=== PATIENT | male | born 1945 | race Caucasian/White ===

== ENCOUNTER 2018-12-06 16:11 | Inpatient (IN) ==
[2018-12-06] MEDS ORDERED: NS 1000 ML 1,000 ML ONE (16:15)
[2018-12-06] MEDS ORDERED: NS 1000 ML 1,000 ML IV ONE ×2 (16:30→19:38)
[2018-12-06 16:32] LABS: BASOPHILS # (AUTO) 0.1 X10^3/uL (0.0-0.1); BASOPHILS % (AUTO) 0.7 % (0.2-1.0); EOSINOPHILS # (AUTO) 0.1 x10^3/uL (0.0-0.2); EOSINOPHILS % (AUTO) 0.7 % (0.9-2.9); HEMATOCRIT 45.2 % (42.0-54.0); LYMPHOCYTES # (AUTO) 1.5 X10^3/uL (1.3-2.9); LYMPHOCYTES % (AUTO) 13.4 % (21.0-51.0); MEAN CORPUSCULAR HEMOGLOBIN 29.4 pg (27.0-34.0); MEAN CORPUSCULAR HGB CONC 33.1 g/dL (33.0-35.0); MEAN PLATELET VOLUME 8.4 fL (7.4-11.0); MONOCYTES # (AUTO) 1.3 x10^3/uL (0.3-0.8); MONOCYTES % (AUTO) 11.1 % (0.0-13.0); NEUTROPHILS # (AUTO) 8.6 x10^3/uL (2.2-4.8); NEUTROPHILS % (AUTO) 74.1 % (42.0-75.0); PLATELET COUNT 164 X10^3/uL (150.0-450.0); RED BLOOD COUNT 5.09 X10^6/uL (4.7-6.0); RED CELL DISTRIBUTION WIDTH 13.5 % (11.6-16.5); WHITE BLOOD COUNT 11.5 X10^3/uL (3.6-10.0)
--- NOTE | 2018-12-06 16:33 | DR.SOBA ---
HPI Time Seen Time Seen by Provider: 12/06/18 16:15 Complaints Chief Complaint Doctors Comments: A 73 y/o male sent over to the ED by his CHANNEL [employer]ER. He was there today for labs and FLU shot. He was noted hypotensive. The pt. admits to SOB but denies c/p or palpitations. He has no fever or chills. He states he was fine yesterday but not feeling good upon awakening this a.m. Reviewed Nurses Notes Reviewed: Yes Source History Provided: Patient and Family Member Context Onset:: At Rest PE Risk Factors:: None History of:: None Currently on:: Neither Prehospital Care:: None Modifying Factors Worsens:: Exertion Improves:: Nothing Associated Signs and Symptoms Associated Signs and Symptoms: None If Cough Cough: None PMH PMH Past Medical History: CHF, Coronary Artery Disease and Hypertension Past Surgical History: Yes Surgical History: CABG/Valve Surgery and Ortho Surgery Social History Do you use any recreational Drugs:: No infectious screening Isolation: Standard ROS Review of Systems Constitutional: Weakness Eyes: No Symptoms Reported ENTM: No Symptoms Reported Respiratoy: Short of Breath Cardiovascular: No Symptoms Reported Gastrointestinal/Abdominal: No Symptoms Reported Genitourinary: No Symptoms Reported Neurological: No Symptoms Reported Musculoskeletal: No Symptoms Reported Integumentary: No Symptoms Reported Hematologic/Lymphatic: No Symptoms Reported Endocrine: No Symptoms Reported Psychiatric: No Symptoms Reported PE Vital Signs Vitals: Temperature 99.8 F Pulse Rate [Apical] 87 Pulse Rate 95 Respiratory Rate 17 Blood Pressure [Left Arm] 79/52 Blood Pressure 74/48 O2 Sat by Pulse Oximetry 95 General Limitations: Physical Limitation (Lt. AKA) General Appearance: Alert and In No Apparent Distress Head Head Exam: Normal Inspection, Atraumatic and Normocephalic Eyes Eye exam: Normal Appearance and EOMI ENT ENT Exam: Normal Exam, Normal Oropharynx and Mucous Membranes Moist Neck Neck Exam: Normal Inspection, Full ROM and Trachea Midline Chest Chest Inspection: Normal Inspection and Symmetric Chest Wall Rise Respiratory Respiratory Exam: Normal Lung Sounds Bilat Cardiovascular Cardiovascular Exam: Regular Rate, Normal Rhythm, Normal Heart Sounds, +S1 and +S2 Abdominal Exam Abdominal Exam: Normal Inspection, Normal Bowel Sounds and Soft Extremities Extremities Exam: Other (Lt. AKA) Back Back Exam: Normal Inspection and Full ROM Neurologic Neurological Exam: Alert and Oriented X3 Psychiatric Psychiatric Exam: Normal Affect and Normal Mood Skin Skin Exam: Dry and Normal Color COURSE Reevaluation 1st: Unchanged Education/Counseling Education/Counseling: Patient, Family and Education Educated On: Treatment, Diagnosis, Prognosis and Needs for Follow Up ROR Labs Reviewed Laboratory Results Reviewed?: Yes Result Diagrams: 12/06/18 16:22 12/06/18 16:22 Laboratory: WBC 11.5 X10^3/uL (3.6-10.0) H 12/06/18 16:22 RBC 5.09 X10^6/uL (4.7-6.0) 12/06/18 16:22 Hgb 15.0 g/dL (13.5-18.0) 12/06/18 16:22 Hct 45.2 % (42.0-54.0) 12/06/18 16:22 MCV 89.0 fL (80.0-100.0) 12/06/18 16:22 MCH 29.4 pg (27.0-34.0) 12/06/18 16:22 MCHC 33.1 g/dL (33.0-35.0) 12/06/18 16:22 RDW 13.5 % (11.6-16.5) 12/06/18 16:22 Plt Count 164 X10^3/uL (150.0-450.0) 12/06/18 16:22 MPV 8.4 fL (7.4-11.0) 12/06/18 16:22 Neut % (Auto) 74.1 % (42.0-75.0) 12/06/18 16:22 Lymph % (Auto) 13.4 % (21.0-51.0) L 12/06/18 16:22 [place] % (Auto) 11.1 % (0.0-13.0) 12/06/18 16:22 Eos % (Auto) 0.7 % (0.9-2.9) L 12/06/18 16:22 Baso % (Auto) 0.7 % (0.2-1.0) 12/06/18 16:22 Neut # (Auto) 8.6 x10^3/uL (2.2-4.8) H 12/06/18 16:22 Lymph # (Auto) 1.5 X10^3/uL (1.3-2.9) 12/06/18 16:22 [place] # (Auto) 1.3 x10^3/uL (0.3-0.8) H 12/06/18 16:22 Eos # (Auto) 0.1 x10^3/uL (0.0-0.2) 12/06/18 16:22 Baso # (Auto) 0.1 X10^3/uL (0.0-0.1) 12/06/18 16:22 Absolute Nucleated RBC 0.0 /100WBC 12/06/18 16:22 PT 13.1 SECONDS (11.8-14.3) 12/06/18 16:22 INR Target Range - 12/06/18 16: INR 1.03 (0.8-1.3) 12/06/18 16:22 APTT 29.7 SECONDS (22.9-36.5) 12/06/18 16:22 PTT Comment - 12/06/18 16:22 Sample Site Rb 12/06/18 17:04 ABG pH 7.300 (7.35-7.45) L 12/06/18 17:04 ABG pCO2 50.0 mmHg (35.0-45.0) H 12/06/18 17:04 ABG pO2 81.0 mmHg (80.0-100.0) 12/06/18 17:04 ABG HCO3 24.6 mmol/L (22-26) 12/06/18 17:04 ABG O2 Saturation 95.0 % (90-100) 12/06/18 17:04 ABG Base Excess -2.3 mmol/L (-2.0-2.0) L 12/06/18 17:04 [place]abena Test Pos 12/06/18 17:04 A-a Gradient 56.0 mmHg 12/06/18 17:04 FiO2 28.0 12/06/18 17:04 Blood Gas Comments Kacie well cb 12/06/18 17:04 Sodium 134 mmol/L (136-145) L 12/06/18 16:22 Corrected Sodium 134 mmol/L (136-145) L 12/06/18 16:22 Potassium 5.9 mmol/L (3.5-5.1) H 12/06/18 16:22 Chloride 102 mmol/L (98-107) 12/06/18 16:22 Carbon Dioxide 23.7 mmol/L (21-32) 12/06/18 16:22 BUN 34 mg/dL (7-18) H 12/06/18 16:22 Creatinine 2.50 mg/dL (0.70-1.30) H 12/06/18 16:22 Est GFR (MDRD) Af Amer 33 (>60) L 12/06/18 16:22 Est GFR (MDRD) Non-Af 27 (>60) L 12/06/18 16:22 Glucose 118 mg/dL (65-99) H 12/06/18 16:22 Lactic Acid 2.1 mmol/L (0.4-2.0) H 12/06/18 16:22 Calcium 9.0 mg/dL (8.5-10.1) 12/06/18 16:22 Corrected Calcium TNP 12/06/18 16:22 Total Bilirubin 0.50 mg/dL (0.2-1.0) 12/06/18 16:22 AST 19 Units/L (15-37) 12/06/18 16:22 ALT 14 Units/L (12-78) 12/06/18 16:22 Alkaline Phosphatase 63 Units/L (46-116) 12/06/18 16:22 Creatine Kinase 131 Units/L (39-308) 12/06/18 16:22 CK-MB (CK-2) 2.1 ng/mL (0-4.0) 12/06/18 16:22 CK/CKMB % Calc 1.6 % (<4) 12/06/18 16:22 Troponin I < 0.02 ng/mL (0-1.5) 12/06/18 16:22 B-Natriuretic Peptide 102 pg/mL (0-79) H 12/06/18 16:22 Total Protein 6.9 g/dL (6.4-8.2) 12/06/18 16:22 Albumin 3.6 g/dL (3.4-5.0) 12/06/18 16:22 Globulin 3.3 g/dL (2.5-4.5) 12/06/18 16:22 Albumin/Globulin Ratio 1.1 Ratio (1.1-2.1) 12/06/18 16:22 Other Results Comments: [employer] report on CXR: Pleural parenchymal scarring within the Rt. lung apex with a questionable new nodular opacities in the RUL. Stable Rt. > Lt. interstitial fibrosis. EKG Rate: 101 [place]: Normal Rhythm: NSR Block: None Hypertrophy: None ST: Normal Opioid Opioid Risk Tool Total: 0 Total Score Risk Category: Low Risk Copyright: [facility] predicting aberrant behaviors Diagnosis Discharge Problem: Acute hypotension, Acute hyperkalemia, Lung nodule, multiple, Pulmonary fibrosis Dyspnea Qualifiers: Dyspnea type: shortness of breath Qualified Code(s): R06.02 - Shortness of breath Instructions Forms: Excuse From Work Patient Portal
--- NOTE | 2018-12-06 16:51 | RAD ---
AP Chest Indication: Shortness of breath Comparison: 07/29/2018 Findings: There is more conspicuous pleural parenchymal scarring within the right lung apex with a questionable new nodular opacity within the right upper lobe. Postsurgical change within the right lung with severe right greater than left lower lobe interstitial lung disease and fibrosis. Lung volumes are noted bilaterally. Blunting of the right costophrenic sulcus without definite blunting of the left costophrenic sulcus. No pneumothorax. No acute osseous abnormality. IMPRESSION: Since previous examination there is increased pleural parenchymal scarring within the right lung apex with a questionable new nodular opacities in the right upper lobe, correlation with follow-up nonemergent contrast-enhanced chest CT is recommended for further characterization. Stable right greater than left interstitial lung disease/fibrosis. Stable costophrenic sulcus blunting within the right lung represents either scarring or small right-sided effusion. No definite left-sided effusion persist. Reported By:
[2018-12-06 16:54] LABS: LACTIC ACID 2.1 mmol/L (0.4-2.0)
[2018-12-06 17:02] LABS: ALANINE AMINOTRANSFERASE 14 Units/L (12-78); ALBUMIN 3.6 g/dL (3.4-5.0); ALKALINE PHOSPHATASE 63 Units/L (46-116); ASPARTATE AMINO TRANSFERASE 19 Units/L (15-37); BLOOD UREA NITROGEN 34 mg/dL (7-18); CARBON DIOXIDE 23.7 mmol/L (21-32); CHLORIDE 102 mmol/L (98-107); CKMB % 1.6 % (<4); COR NA(FOR HYPERGLY) 134 mmol/L (136-145); CREATINE KINASE 131 Units/L (39-308); CREATINE KINASE MB 2.1 ng/mL (0-4.0); SODIUM 134 mmol/L (136-145); TOTAL PROTEIN 6.9 g/dL (6.4-8.2); eGFR NON BLACK RACES 27 (>60)
[2018-12-06 17:10] LABS: ABG ALLEN TEST POS; ABG BASE EXCESS -2.3 mmol/L (-2.0-2.0); ABG HCO3 24.6 mmol/L (22-26)
[2018-12-06 17:23] LABS: TROPONIN I < 0.02 ng/mL (0-1.5)
[2018-12-06] MEDS ORDERED: DOPAMINE IV PREMIX 400 MG/250 ML 400 MG/250 ML BAG IV PRN ×2 (17:28→17:42)
[2018-12-06 18:48] VITALS: BMI 20.9
[2018-12-06] MEDS ORDERED: AFLURIA II4 or FLUARIX II4 IM ONE (18:48)
[2018-12-06] MEDS ORDERED: PHARMACY CONSULT - VANCOMYCIN XX SCH (19:00)
[2018-12-06] MEDS ORDERED: LEVOPHED INJ 8 MG in D5W 250 ML IV 242 ML IV PRN (19:22)
[2018-12-06] MEDS ORDERED: D5W 250 ML IV 250 ML IV ONE ×2 (19:24→22:13)
[2018-12-06] MEDS ORDERED: LEVOPHED INJ ONE (19:24)
--- NOTE | 2018-12-06 19:31 | DR.H&P ---
H&P History & Physical for Day of: H&P Date: 12/06/18 Chief Complaint Chief Complaint: Shortness of breath, low blood pressure Allergies Allergies Allergy/AdvReac Type Severity Reaction Status Date / Time Penicillins Allergy Verified 07/29/18 21:40 History of Present Illness History of Present Illness: Mr. Austin is a 73y/o male with a PMH of CAD, CABG, PVD s/p amputation, Lung cancer s/p RUL resection, pulmonary fibrosis and COPD presented with SOB, chills and hypotension. Patient seen in the ER with present at bedside. Patient reports waking up feeling short of breath associated with chills. He has oxygen at home but has not required it in months. He started using 3 L this morning due to increased SOB and wheezing. He denies cough, fever, no chest pain. He denies any sick contact. He denies N/V/D or abdominal pain. Denies dizziness or syncopal episodes. He has had decreased appetite today. He went to his PCP's office in [place] and was found to be hypotensive, SBP in 70s and told to go to the ED. Patient has had ER visits for dehydration in the past. He reports doing well till yesterday when we went to bed. He denies any changes in eating habits in the last few days. He has left leg amputation due to severe PVD. He had a recent echo and carotid U/S done and has appointment with cardiology next week. He took all his medications today except Lasix. No recent med changes. ED work-up - BP: 79/52 HR: 90s-low 100s - Labs: K:5.9 Na: 134 BUN: 34 Cr: 2.5 WBC: 11.5 - CXR: R apex nodular opacity, pulmonary fibrosis - Received NS IVF, BP initially improved to SBP 90s, then dropped to 80s, started on Dopamine Admit to ICU for closer monitoring and pressure support Past Medical History Past Medical History: CHF, Coronary Artery Disease and Hypertension Past Surgical History Surgical History: Angioplasty/Stents, CABG/Valve Surgery and Ortho Surgery Family History Family Medical History: Diabetes Mellitus, [place], Coronary Artery Disease, Heart Failure and Hypertension Social History Does patient currently use any type of tobacco product: No Have you used tobacco products in the last 12 months: No Type of Tobacco Use: None Does any household member use tobacco: No Alcohol Use: None Drug Use: None Medications Home Medications: Penicillins Allergy (Verified 07/29/18 21:40) CONTINUE taking the following medications albuterol sulfate [ProAir HFA] 1 inh INHALATION PRN PRN 12/06/18 [History] cholecalciferol (vitamin D3) [Vitamin D3] 1,000 unit PO DAILY 12/06/18 [History] cyanocobalamin (vitamin B-12) [Vitamin B-12] 1,000 mcg PO DAILY 12/06/18 [History] itvayfuhkhd-haandycxt-rcmxrwmi [Trelegy Ellipta] 1 inh INHALATION DAILY 12/06/18 [History] ipratropium-albuterol 3 ml INHALATION QID PRN 12/06/18 [History] iron 27 mg PO DAILY 12/06/18 [History] levothyroxine [Synthroid] 25 mcg PO DAILY 12/06/18 [History] ticagrelor [Brilinta] 90 mg PO BID 12/06/18 [History] Labs Result Diagrams: 12/06/18 16:22 12/06/18 16:22 Labs: Laboratory WBC 11.5 X10^3/uL (3.6-10.0) H 12/06/18 16:22 RBC 5.09 X10^6/uL (4.7-6.0) 12/06/18 16:22 Hgb 15.0 g/dL (13.5-18.0) 12/06/18 16:22 Hct 45.2 % (42.0-54.0) 12/06/18 16:22 MCV 89.0 fL (80.0-100.0) 12/06/18 16:22 MCH 29.4 pg (27.0-34.0) 12/06/18 16:22 MCHC 33.1 g/dL (33.0-35.0) 12/06/18 16:22 RDW 13.5 % (11.6-16.5) 12/06/18 16:22 Plt Count 164 X10^3/uL (150.0-450.0) 12/06/18 16:22 MPV 8.4 fL (7.4-11.0) 12/06/18 16:22 Neut % (Auto) 74.1 % (42.0-75.0) 12/06/18 16:22 Lymph % (Auto) 13.4 % (21.0-51.0) L 12/06/18 16:22 [place] % (Auto) 11.1 % (0.0-13.0) 12/06/18 16:22 Eos % (Auto) 0.7 % (0.9-2.9) L 12/06/18 16:22 Baso % (Auto) 0.7 % (0.2-1.0) 12/06/18 16:22 Neut # (Auto) 8.6 x10^3/uL (2.2-4.8) H 12/06/18 16:22 Lymph # (Auto) 1.5 X10^3/uL (1.3-2.9) 12/06/18 16:22 [place] # (Auto) 1.3 x10^3/uL (0.3-0.8) H 12/06/18 16:22 Eos # (Auto) 0.1 x10^3/uL (0.0-0.2) 12/06/18 16:22 Baso # (Auto) 0.1 X10^3/uL (0.0-0.1) 12/06/18 16:22 Absolute Nucleated RBC 0.0 /100WBC 12/06/18 16:22 PT 13.1 SECONDS (11.8-14.3) 12/06/18 16:22 INR Target Range - 12/06/18 16:22 INR 1.03 (0.8-1.3) 12/06/18 16:22 APTT 29.7 SECONDS (22.9-36.5) 12/06/18 16:22 PTT Comment - 12/06/18 16:22 Sample Site Rb 12/06/18 17:04 ABG pH 7.300 (7.35-7.45) L 12/06/18 17:04 ABG pCO2 50.0 mmHg (35.0-45.0) H 12/06/18 17:04 ABG pO2 81.0 mmHg (80.0-100.0) 12/06/18 17:04 ABG HCO3 24.6 mmol/L (22-26) 12/06/18 17:04 ABG O2 Saturation 95.0 % (90-100) 12/06/18 17:04 ABG Base Excess -2.3 mmol/L (-2.0-2.0) L 12/06/18 17:04 [place] Test Pos 12/06/18 17:04 A-a Gradient 56.0 mmHg 12/06/18 17:04 FiO2 28.0 12/06/18 17:04 Blood Gas Comments Kacie well cb 12/06/18 17:04 Sodium 134 mmol/L (136-145) L 12/06/18 16:22 Corrected Sodium 134 mmol/L (136-145) L 12/06/18 16:22 Potassium 5.9 mmol/L (3.5-5.1) H 12/06/18 16:22 Chloride 102 mmol/L (98-107) 12/06/18 16:22 Carbon Dioxide 23.7 mmol/L (21-32) 12/06/18 16:22 BUN 34 mg/dL (7-18) H 12/06/18 16:22 Creatinine 2.50 mg/dL (0.70-1.30) H 12/06/18 16:22 Est GFR (MDRD) Af Amer 33 (>60) L 12/06/18 16:22 Est GFR (MDRD) Non-Af 27 (>60) L 12/06/18 16:22 Glucose 118 mg/dL (65-99) H 12/06/18 16:22 Lactic Acid 2.1 mmol/L (0.4-2.0) H 12/06/18 16:22 Calcium 9.0 mg/dL (8.5-10.1) 12/06/18 16:22 Corrected Calcium TNP 12/06/18 16:22 Total Bilirubin 0.50 mg/dL (0.2-1.0) 12/06/18 16:22 AST 19 Units/L (15-37) 12/06/18 16:22 ALT 14 Units/L (12-78) 12/06/18 16:22 Alkaline Phosphatase 63 Units/L (46-116) 12/06/18 16:22 Creatine Kinase 131 Units/L (39-308) 12/06/18 16:22 CK-MB (CK-2) 2.1 ng/mL (0-4.0) 12/06/18 16:22 CK/CKMB % Calc 1.6 % (<4) 12/06/18 16:22 Troponin I < 0.02 ng/mL (0-1.5) 12/06/18 16:22 B-Natriuretic Peptide 102 pg/mL (0-79) H 12/06/18 16:22 Total Protein 6.9 g/dL (6.4-8.2) 12/06/18 16:22 Albumin 3.6 g/dL (3.4-5.0) 12/06/18 16:22 Globulin 3.3 g/dL (2.5-4.5) 12/06/18 16:22 Albumin/Globulin Ratio 1.1 Ratio (1.1-2.1) 12/06/18 16:22 Review of Systems Constitutional: Chills; denies Fever, Sweats and Malaise Eyes: No Symptoms Reported ENT: denies Nose Discharge, Nose Congestion and Throat Pain Respiratory: SOB with Excertion and Wheezing; denies Cough, Hemoptysis and Pleur itic Pain Cardiovascular: denies Chest Pain, Palpitations and Edema Gastrointestinal: denies Nausea, Vomiting, Abdominal Pain and Diarrhea Genitourinary: No Symptoms Reported Musculoskeletal: No Symptoms Reported Skin: No Symptoms Reported Neurological: No Symptoms Reported Physical Exam Vital Signs: Temperature 99.8 F Pulse Rate [Apical] 100 Pulse Rate 95 Respiratory Rate 23 Blood Pressure [Left Arm] 85/47 Blood Pressure 74/48 O2 Sat by Pulse Oximetry 94 Oriented: Normal Eyes: Normal Ear: Normal Throat: Normal Respiratory: Wheezes Throughout Cardiovascular: Tachycardia Auscultation: Bowel Sounds: Normal Palpation: Normal Tenderness: Normal Skin: Normal Psychiatric: Normal Mood Description: Calm Speech Pattern: Clear, Appropriate and Aphasic Assessment/Plan (1) Hypoxia: Status: Acute Plan: Sx: acute onset SOB, wheezing, chills DDx: pneumonia, COPD exacerbation, PE oxygen prn to keep sats >92%, duonebs prn, start solumedrol, Fortaz, Vancomycin Trend lactate, troponins. Blood cultures collected. Venous doppler for LE in the AM Risk factors for PE: acute onset of SOB, hypotension, tachycardia, hx of cancer, decreased mobility due to amputation. Can not obtain CTA due to poor renal function. Will start heparin drip due to high risk for PE in this patient. Consider CTA in the AM if renal function improved. Critical care time spent evaluating patient, reviewing medical records, clinical diagnostics and management 30 -74 minutes. (2) Acute chronic obstructive pulmonary disease with respiratory distress: Status: Acute Plan: start solumedrol, duonebs prn , oxygen (3) Hypercapnia: Status: Acute Plan: hx of COPD, pulmonary fibrosis, no prev ABG to compare (4) Acute hypotension: Status: Acute Plan: due to sepsis from pneumonia or dehydration, PE - received IVF, will give another bolus. No echo on file. Started on Dopamine in ED, will switch to Levophed and titrate to keep MAP>65 (5) Acute hyperkalemia: Status: Acute Plan: - repeat serum K, monitor daily BMP (6) Acute renal failure (ARF): Status: Acute Plan: Cr: 2.5, last 2.9 in July, unclear of baseline renal function, received IVF, will follow CMP in the AM (7) Dyspnea: Qualifiers: Dyspnea type: shortness of breath Qualified Code(s): R06.02 - Shortness of breath; R06.00 - Dyspnea, unspecified; R06.01 - Orthopnea Status: Acute (8) Lung nodule, multiple: Status: Acute Plan: needs further evaluation with CTA, poor renal function on admission (9) Pulmonary fibrosis: Status: Acute
[2018-12-06] MEDS ORDERED: KAYEXALATE SUSP PO ONE (19:34)
[2018-12-06] MEDS ORDERED: PROVENTIL NEB TX 0.083% 2.5MG/ 3ML NEB PRN (19:34)
[2018-12-06] MEDS ORDERED: DUONEB 0.5 MG/3 MG IN PRN (19:34)
[2018-12-06] MEDS ORDERED: HEPARIN SODIUM IN D5W 25,000 UNITS/500 ML BAG IV PRN ×2 (19:35→19:44)
[2018-12-06] MEDS ORDERED: HEPARIN SODIUM IN D5W 25,000 UNITS/500 ML BAG IV ONE (19:38)
[2018-12-06] MEDS ORDERED: HEPARIN SODIUM INJ 5000 UNITS ONE (19:39)
[2018-12-06] MEDS: HEPARIN SODIUM INJ 5000 UNITS IVP ONE ×2 (19:49→19:50)
[2018-12-06] MEDS ORDERED: VANCOMYCIN HCL 500 MG in D5W 100 ML IV 100 ML IV SCH (20:00)
[2018-12-06] MEDS ORDERED: NS 250 ML IV 250 ML IV ONE (20:36)
--- NOTE | 2018-12-06 20:38 | VAS ---
VENOUS ULTRASOUND DOPPLER EXAMINATION OF THE RIGHT LOWER EXTREMITY HISTORY: Shortness of breath Comparison: None TECHNIQUE: Multiple lim scale and color flow Doppler images of the deep venous system were obtained of the right lower extremity. FINDINGS: The deep venous system of the right lower extremity was evaluated from the level of the common femoral vein through the popliteal vein. Normal color flow and augmentation can be observed. In addition, normal compression is seen throughout the deep venous system. IMPRESSION: 1. Negative for DVT. Reported By:
[2018-12-06] MEDS ORDERED: PATIENT'S HOME MEDICATION (Pregabalin [Lyrica] 50 MG) PO SCH (21:00)
[2018-12-06] MEDS: DUONEB 0.5 MG/3 MG NEB PRN (21:04)
[2018-12-06] MEDS: LYRICA CAP 50 mg PO SCH (21:11)
[2018-12-06] MEDS: SOLU-Medrol 125 MG VIAL IVP SCH ×2 (21:30→22:02)
[2018-12-06] MEDS: FORTAZ or TAZICEF VIAL INJ 2 G in NS 100 ML IV + SPIKE MINIBAG* 100 ML IV SCH ×2 (21:58→22:00)
[2018-12-06] MEDS: BRILINTA PO SCH (22:01)
[2018-12-06] MEDS ORDERED: VANCOMYCIN HCL ONE (22:10)
[2018-12-06 22:37] LABS: CKMB % 1.6 % (<4); CREATINE KINASE 133 Units/L (39-308); CREATINE KINASE MB 2.1 ng/mL (0-4.0); TROPONIN I < 0.02 ng/mL (0-1.5)
[2018-12-07 05:19] LABS: BASOPHILS % (AUTO) 0.2 % (0.2-1.0); EOSINOPHILS % (AUTO) 0.1 % (0.9-2.9); HEMATOCRIT 42.8 % (42.0-54.0); HEMOGLOBIN 14.1 g/dL (13.5-18.0); LYMPHOCYTES # (AUTO) 0.7 X10^3/uL (1.3-2.9); MEAN CORPUSCULAR HEMOGLOBIN 29.4 pg (27.0-34.0); MEAN CORPUSCULAR VOLUME 89.1 fL (80.0-100.0); MEAN PLATELET VOLUME 8.5 fL (7.4-11.0); MONOCYTES # (AUTO) 0.3 x10^3/uL (0.3-0.8); MONOCYTES % (AUTO) 3.5 % (0.0-13.0); NEUTROPHILS # (AUTO) 8.2 x10^3/uL (2.2-4.8); NEUTROPHILS % (AUTO) 88.2 % (42.0-75.0); PLATELET COUNT 154 X10^3/uL (150.0-450.0); RED BLOOD COUNT 4.81 X10^6/uL (4.7-6.0); RED CELL DISTRIBUTION WIDTH 13.5 % (11.6-16.5); WHITE BLOOD COUNT 9.3 X10^3/uL (3.6-10.0)
[2018-12-07 05:25] LABS: CALCIUM 8.6 mg/dL (8.5-10.1); CARBON DIOXIDE 23.4 mmol/L (21-32); COR CA(FOR HYPOALB) 9.4 mg/dL (8.5-10.1); CREATININE 1.5 mg/dL (0.70-1.30); TOTAL PROTEIN 6.4 g/dL (6.4-8.2)
[2018-12-07] MEDS: SOLU-Medrol 125 MG VIAL IVP SCH ×3 (05:39→22:09)
[2018-12-07] MEDS: FORTAZ or TAZICEF VIAL INJ 2 G in NS 100 ML IV + SPIKE MINIBAG* 100 ML IV SCH ×3 (05:39→22:09)
[2018-12-07] MEDS ORDERED: PATIENT'S HOME MEDICATION (Fluticasone-Umeclidin-Vilanter [Trelegy Ellipta] 1 INH) IN SCH (09:00)
[2018-12-07] MEDS ORDERED: ESOMEPRAZOLE MAGNESIUM 20 MG PO SCH (09:00)
[2018-12-07] MEDS ORDERED: PATIENT'S HOME MEDICATION (Cholecalciferol (Vitamin D3) [Vitamin D3] 1,000 UNIT) PO SCH (09:00)
--- NOTE | 2018-12-07 09:12 | PCM.PROG ---
Progress Note Progress Note for Day of Date of Exam: 12/07/18 Subjective Subjective: Patient seen this AM, reports feeling better, improvement in breathing. He did get some rest. He is on Levophed 4, MAP 92. He denies fever or chills. Denies N/V/D or abdominal pain. Denies chest pain. Past Medical Family Social History Past Med/Fam/Surg Hx: No changes since H&P Allergies: Allergies Penicillins Allergy (Verified 07/29/18 21:40) Review of Systems ROS: No change since H&P Vital Signs and I&O's Vital Signs: Temperature 97.9 F Pulse Rate [Apical] 100 Pulse Rate 102 Respiratory Rate 26 Blood Pressure [Left Arm] 85/47 Blood Pressure 154/67 O2 Sat by Pulse Oximetry 99 Intake and Output: Intake & Output 12/04/18 12/05/18 12/06/18 12/07/18 23:59 23:59 23:59 23:59 Intake Total 2808 / 2808 1281 / 1281 Output Total 575 / 575 1040 / 1040 Balance 2233 / 2233 241 / 241 Physical Exam Oriented: Normal Eyes: Normal Ear: Normal Throat: Normal Respiratory: Normal (slight wheezing) Cardiovascular: Normal and Tachycardia Auscultation: Bowel Sounds: Normal Tenderness: Normal Skin: Normal Musculoskeletal: Left (left leg amputation) Psychiatric: Normal Mood Description: Calm Speech Pattern: Clear and Appropriate Laboratory and Diagnostics Result Diagrams: 12/07/18 04:52 12/07/18 04:52 Labs: Laboratory WBC 9.3 X10^3/uL (3.6-10.0) 12/07/18 04:52 RBC 4.81 X10^6/uL (4.7-6.0) 12/07/18 04:52 Hgb 14.1 g/dL (13.5-18.0) 12/07/18 04:52 Hct 42.8 % (42.0-54.0) 12/07/18 04:52 MCV 89.1 fL (80.0-100.0) 12/07/18 04:52 MCH 29.4 pg (27.0-34.0) 12/07/18 04:52 MCHC 33.0 g/dL (33.0-35.0) 12/07/18 04:52 RDW 13.5 % (11.6-16.5) 12/07/18 04:52 Plt Count 154 X10^3/uL (150.0-450.0) 12/07/18 04:52 MPV 8.5 fL (7.4-11.0) 12/07/18 04:52 Neut % (Auto) 88.2 % (42.0-75.0) H 12/07/18 04:52 Lymph % (Auto) 8.0 % (21.0-51.0) L 12/07/18 04:52 [place] % (Auto) 3.5 % (0.0-13.0) 12/07/18 04:52 Eos % (Auto) 0.1 % (0.9-2.9) L 12/07/18 04:52 Baso % (Auto) 0.2 % (0.2-1.0) 12/07/18 04:52 Neut # (Auto) 8.2 x10^3/uL (2.2-4.8) H 12/07/18 04:52 Lymph # (Auto) 0.7 X10^3/uL (1.3-2.9) L 12/07/18 04:52 [place] # (Auto) 0.3 x10^3/uL (0.3-0.8) 12/07/18 04:52 Eos # (Auto) 0.0 x10^3/uL (0.0-0.2) 12/07/18 04:52 Baso # (Auto) 0.0 X10^3/uL (0.0-0.1) 12/07/18 04:52 Absolute Nucleated RBC 0.0 /100WBC 12/07/18 04:52 PT 13.1 SECONDS (11.8-14.3) 12/06/18 16:22 INR Target Range - 12/06/18 16:22 INR 1.03 (0.8-1.3) 12/06/18 16:22 APTT 100.5 SECONDS (22.9-36.5) H 12/07/18 01:49 PTT Comment - 12/07/18 01:49 Sample Site Rb 12/06/18 17:04 ABG pH 7.300 (7.35-7.45) L 12/06/18 17:04 ABG pCO2 50.0 mmHg (35.0-45.0) H 12/06/18 17:04 ABG pO2 81.0 mmHg (80.0-100.0) 12/06/18 17:04 ABG HCO3 24.6 mmol/L (22-26) 12/06/18 17:04 ABG O2 Saturation 95.0 % (90-100) 12/06/18 17:04 ABG Base Excess -2.3 mmol/L (-2.0-2.0) L 12/06/18 17:04 [place] Test Pos 12/06/18 17:04 A-a Gradient 56.0 mmHg 12/06/18 17:04 FiO2 28.0 12/06/18 17:04 Blood Gas Comments Kacie well cb 12/06/18 17:04 Sodium 140 mmol/L (136-145) 12/07/18 04:52 Corrected Sodium 142 mmol/L (136-145) 12/07/18 04:52 Potassium 5.0 mmol/L (3.5-5.1) 12/07/18 04:52 Chloride 107 mmol/L (98-107) 12/07/18 04:52 Carbon Dioxide 23.4 mmol/L (21-32) 12/07/18 04:52 BUN 27 mg/dL (7-18) H 12/07/18 04:52 Creatinine 1.50 mg/dL (0.70-1.30) H 12/07/18 04:52 Est GFR (MDRD) Af Amer 59 (>60) 12/07/18 04:52 Est GFR (MDRD) Non-Af 48 (>60) L 12/07/18 04:52 Glucose 202 mg/dL (65-99) H 12/07/18 04:52 Lactic Acid 0.9 mmol/L (0.4-2.0) 12/06/18 22:09 Calcium 8.6 mg/dL (8.5-10.1) 12/07/18 04:52 Corrected Calcium 9.4 mg/dL (8.5-10.1) 12/07/18 04:52 Total Bilirubin 0.30 mg/dL (0.2-1.0) 12/07/18 04:52 AST 13 Units/L (15-37) L 12/07/18 04:52 ALT 12 Units/L (12-78) 12/07/18 04:52 Alkaline Phosphatase 58 Units/L (46-116) 12/07/18 04:52 Creatine Kinase 133 Units/L (39-308) 12/06/18 22:09 CK-MB (CK-2) 2.1 ng/mL (0-4.0) 12/06/18 22:09 CK/CKMB % Calc 1.6 % (<4) 12/06/18 22:09 Troponin I < 0.02 ng/mL (0-1.5) 12/06/18 22:09 B-Natriuretic Peptide 102 pg/mL (0-79) H 12/06/18 16:22 Total Protein 6.4 g/dL (6.4-8.2) 12/07/18 04:52 Albumin 3.0 g/dL (3.4-5.0) L 12/07/18 04:52 Globulin 3.4 g/dL (2.5-4.5) 12/07/18 04:52 Albumin/Globulin Ratio 0.9 Ratio (1.1-2.1) L 12/07/18 04:52 Influenza Type A (PCR) Negative (NEGATIVE) 12/07/18 02:00 Influenza Type B (PCR) Negative (NEGATIVE) 12/07/18 02:00 Radiology Reviewed: Yes Plan (1) Hypoxia: Status: Acute Plan: Sx: acute onset SOB, wheezing, chills DDx: pneumonia, COPD exacerbation, PE oxygen prn to keep sats >92%, duonebs prn, start solumedrol, Fortaz, Vancomycin Lactate normalized, troponins negative. Blood cultures collected. Venous doppler for LE negative for DVT Risk factors for PE: acute onset of SOB, hypotension, tachycardia, hx of cancer, decreased mobility due to amputation. Could not obtain CT-chest PE on admission due to poor renal function, currently on heparin drip. Cr. improved this AM, will order CT-chest PE protocol. Discussed with patient and . Obtain ECHO results from welfare visitor Dr. Storey in [place], done this past Monday (2) Acute chronic obstructive pulmonary disease with respiratory distress: Status: Acute Plan: Wheezing improved, continue solumedrol, duonebs prn , oxygen (3) Hypercapnia: Status: Acute Plan: hx of COPD, pulmonary fibrosis, no prev ABG to compare (4) Acute hypotension: Status: Acute Plan: due to sepsis from pneumonia or dehydration, PE - received IVF boluses, currently on Levophed 4, MAP 92, wean down as tolerated to keep MAP > 65. (5) Acute hyperkalemia: Status: Acute Plan: - repeat serum K, monitor daily BMP (6) Acute renal failure (ARF): Status: Acute Plan: Cr: 2.5, last 2.9 in July, unclear of baseline renal function, trending down to 1.5 (7) Dyspnea: Status: Acute Qualifiers: Dyspnea type: shortness of breath Qualified Code(s): R06.02 - Shortness of breath; R06.00 - Dyspnea, unspecified; R06.01 - Orthopnea (8) Lung nodule, multiple: Status: Acute Plan: CTA ordered (9) Pulmonary fibrosis: Status: Acute
[2018-12-07] MEDS: BRILINTA PO SCH ×2 (09:23→22:10)
[2018-12-07] MEDS: VITAMIN D3 PO SCH (09:28)
[2018-12-07] MEDS: SYNTHROID 25 mcg TAB PO SCH (09:28)
[2018-12-07] MEDS: ASPIRIN 81 MG CHEWTAB PO SCH (09:29)
[2018-12-07] MEDS: PRAVACHOL PO SCH (09:29)
[2018-12-07] MEDS: PROTONIX TAB 40 MG PO SCH (09:29)
[2018-12-07] MEDS: VITAMIN B-12 PO SCH (09:30)
[2018-12-07] MEDS: LYRICA CAP 50 mg PO SCH ×2 (09:33→21:32)
[2018-12-07] MEDS: IRON 27 MG PO SCH (09:44)
--- NOTE | 2018-12-07 09:48 | CT ---
HISTORY: Shortness of breath Study: CTA chest with contrast for pulmonary embolus Comparison: None Technique: Axial post-contrast images with coronal, sagittal, and three-dimensional maximum intensity projection images obtained and evaluated. Dose reduction procedures were used with mA/kv adjusted for body size. Findings: There is no evidence for acute pulmonary thromboembolic disease. Examination of the mediastinum demonstrated no evidence for mediastinal masses, enlarged mediastinal or enlarged hilar adenopathy, significant aortic abnormality, or pleural effusion. Postoperative changes are present in the right hemithorax. No chest wall or axillary abnormality is identified. Those portions of the upper abdominal organs visualized were within normal limits. Incidental note was made of a 16 mm left adrenal adenoma. Examination of the lung basurto demonstrated pleuro parenchymal scarring in the right lung apex likely due to old granulomatous disease. Right apical blebs are present. The patient appears to be status post partial pneumonectomy. No parenchymal nodules, alveolar infiltrates, areas of consolidation, or bronchiectasis is identified. There is some fibrosis in the right lung base and right lower lobe. There is peribronchial thickening consistent with bronchitis which could be acute, chronic, or both. IMPRESSION: No evidence for acute pulmonary thromboembolic disease Postsurgical changes right hemithorax Fibrotic changes in the right lung base, chronic Peribronchial thickening consistent with bronchitis which could be acute, chronic, or both Reported By:
[2018-12-07] MEDS ORDERED: HEPARIN SODIUM INJ 5000 UNITS ONE (09:54)
[2018-12-07] MEDS: HEPARIN SODIUM INJ 5000 UNITS IVP ONE (10:33)
[2018-12-07] MEDS: DUONEB 0.5 MG/3 MG NEB PRN ×2 (11:30→21:55)
[2018-12-07] MEDS ORDERED: HEPARIN SODIUM INJ 5000 UNITS SC SCH (14:00)
[2018-12-07] MEDS ORDERED: VANCOMYCIN HCL 1 G in D5W 250 ML IV 250 ML IV SCH (20:00)
[2018-12-08] MEDS ORDERED: TYLENOL 325 MG TAB PO PRN (02:22)
[2018-12-08] MEDS ORDERED: TYLENOL 325 MG TAB PO ONE (02:24)
[2018-12-08] MEDS ORDERED: NS 100 ML IV + SPIKE MINIBAG* 100 ML IV ONE (05:38)
[2018-12-08] MEDS: FORTAZ or TAZICEF VIAL INJ 2 G in NS 100 ML IV + SPIKE MINIBAG* 100 ML IV SCH (05:51)
[2018-12-08] MEDS: SOLU-Medrol 125 MG VIAL IVP SCH (05:52)
[2018-12-08 06:06] LABS: BASOPHILS % (AUTO) 0.1 % (0.2-1.0); EOSINOPHILS % (AUTO) 0.1 % (0.9-2.9); HEMATOCRIT 39.4 % (42.0-54.0); HEMOGLOBIN 13.1 g/dL (13.5-18.0); LYMPHOCYTES # (AUTO) 0.6 X10^3/uL (1.3-2.9); LYMPHOCYTES % (AUTO) 7.5 % (21.0-51.0); MEAN CORPUSCULAR HEMOGLOBIN 29.6 pg (27.0-34.0); MEAN CORPUSCULAR HGB CONC 33.2 g/dL (33.0-35.0); MEAN CORPUSCULAR VOLUME 89.4 fL (80.0-100.0); MEAN PLATELET VOLUME 8.8 fL (7.4-11.0); MONOCYTES # (AUTO) 0.6 x10^3/uL (0.3-0.8); NEUTROPHILS # (AUTO) 6.7 x10^3/uL (2.2-4.8); NEUTROPHILS % (AUTO) 85.3 % (42.0-75.0); PLATELET COUNT 123 X10^3/uL (150.0-450.0); RED BLOOD COUNT 4.41 X10^6/uL (4.7-6.0); RED CELL DISTRIBUTION WIDTH 13.8 % (11.6-16.5); WHITE BLOOD COUNT 7.9 X10^3/uL (3.6-10.0)
[2018-12-08 06:27] LABS: BLOOD UREA NITROGEN 21 mg/dL (7-18); CALCIUM 8.7 mg/dL (8.5-10.1); CARBON DIOXIDE 24.8 mmol/L (21-32); CHLORIDE 107 mmol/L (98-107); COR NA(FOR HYPERGLY) 142 mmol/L (136-145); CREATININE 1.01 mg/dL (0.70-1.30); SODIUM 141 mmol/L (136-145); eGFR NON BLACK RACES > 60 (>60)
[2018-12-08] MEDS ORDERED: MILK OF MAGNESIA PO SCH (09:00)
[2018-12-08] MEDS ORDERED: COREG TAB 12.5 MG PO SCH (09:00)
[2018-12-08] MEDS ORDERED: ISOSORBIDE DINITRATE PO SCH (09:00)
[2018-12-08] MEDS ORDERED: PLAVIX PO SCH (09:00)
[2018-12-08] MEDS ORDERED: ZESTRIL TAB 5 MG PO SCH (09:00)
[2018-12-08] MEDS: ASPIRIN 81 MG CHEWTAB PO SCH (09:26)
[2018-12-08] MEDS: IRON 27 MG PO SCH (09:27)
[2018-12-08] MEDS: LYRICA CAP 50 mg PO SCH (09:28)
[2018-12-08] MEDS: PRAVACHOL PO SCH (09:29)
[2018-12-08] MEDS: PROTONIX TAB 40 MG PO SCH (09:30)
[2018-12-08] MEDS: VITAMIN D3 PO SCH (09:31)
[2018-12-08] MEDS: SYNTHROID 25 mcg TAB PO SCH (09:31)
[2018-12-08] MEDS: VITAMIN B-12 PO SCH (09:31)
[2018-12-08 12:16] VITALS: BP 159/69
--- NOTE | 2018-12-08 13:08 | W.DIS.FURT ---
Summary of Discharge Discharge Summary of Date Date of Exam: 12/08/18 Admission Date Date of Admission: 12/06/18 Admission Diagnosis Hospital Course: Mr. Barrios is a 73y/o male with extensive cardiac and pulmonary hx including CAD, CABG, Lung cancer, Pulmonary fibrosis and COPD. He presented with worsening SOB, low BP as noted during his clinic visit with his PCP. He was noted to have SBP in 70s therefore transferred to the ER. On admission, his BP remained in 70- 80s/50s. He did not respond to IVF therefore he was started on Dopamine initially but later switched to Levophed. CXR showed some nodular opacities and scarring. He was started on Vancomycin and Fortaz to cover MRSA and Pseudomonas. Due to his acute presentation with hypotension, SOB and tachycardia with multiple risk factors for PE, he was started on heparin drip. CTA could not be done on admission due to acute renal failure with Cr. 2.5. Patient's condition improved in the AM. He was weaned off Levophed. His renal function improved and CTA was done which was negative for PE. Heparin drip was stopped. His vitals remained stable and he reported improvement in his breathing. His medical records from cardiology were reviewed, recent echo last week showed normal LV function. His cultures remained negative. CTA showed acute/chronic bronchitis. He was transitioned to oral abx and prednisone. He was stable for discharge. He will follow up with cardiology and PCP next week. Vital Signs: Vital Signs (72 hours) 12/06/18 16:11 12/06/18 16:16 12/06/18 16:53 Temperature 99.8 F H Pulse Rate 95 H Pulse Rate [Apical] 106 H 91 H Respiratory Rate 22 22 18 Blood Pressure 74/48 Blood Pressure [Left Arm] 91/52 84/54 O2 Sat by Pulse Oximetry 85 L 91 L 96 12/06/18 17:00 12/06/18 17:22 12/06/18 18:05 Temperature Pulse Rate Pulse Rate [Apical] 93 H 87 100 H Respiratory Rate 20 17 23 Blood Pressure Blood Pressure [Left Arm] 83/47 79/52 85/47 O2 Sat by Pulse Oximetry 95 95 94 L 12/06/18 18:49 12/06/18 19:00 12/06/18 19:06 Temperature Pulse Rate 99 H 105 H 101 H Pulse Rate [Apical] Respiratory Rate 18 21 18 Blood Pressure 78/51 Blood Pressure [Left Arm] O2 Sat by Pulse Oximetry 94 L 93 L 94 L 12/06/18 19:20 12/06/18 19:21 12/06/18 19:30 Temperature Pulse Rate 94 H 92 H 87 Pulse Rate [Apical] Respiratory Rate 19 17 16 Blood Pressure 61/40 65/42 Blood Pressure [Left Arm] O2 Sat by Pulse Oximetry 95 96 97 12/06/18 19:40 12/06/18 20:00 12/06/18 20:20 Temperature Pulse Rate 77 84 86 Pulse Rate [Apical] Respiratory Rate 15 19 29 H Blood Pressure 111/53 120/58 114/55 Blood Pressure [Left Arm] O2 Sat by Pulse Oximetry 99 99 98 12/06/18 20:30 12/06/18 20:40 12/06/18 21:00 Temperature 99.6 F Pulse Rate 84 85 84 Pulse Rate [Apical] Respiratory Rate 18 19 18 Blood Pressure 112/52 111/53 Blood Pressure [Left Arm] O2 Sat by Pulse Oximetry 99 98 97 12/06/18 21:05 12/06/18 21:22 12/06/18 21:30 Temperature Pulse Rate 81 87 79 Pulse Rate [Apical] Respiratory Rate 25 H 22 Blood Pressure 132/54 Blood Pressure [Left Arm] O2 Sat by Pulse Oximetry 96 98 97 12/06/18 21:54 12/06/18 22:00 12/06/18 22:30 Temperature Pulse Rate 75 71 78 Pulse Rate [Apical] Respiratory Rate 28 H 17 22 Blood Pressure 105/55 112/52 Blood Pressure [Left Arm] O2 Sat by Pulse Oximetry 97 97 99 12/06/18 22:31 12/06/18 23:00 12/06/18 23:01 Temperature Pulse Rate 79 73 74 Pulse Rate [Apical] Respiratory Rate 23 14 14 Blood Pressure 129/57 110/51 Blood Pressure [Left Arm] O2 Sat by Pulse Oximetry 98 98 98 12/06/18 23:30 12/07/18 00:00 12/07/18 00:30 Temperature 98.3 F Pulse Rate 72 69 71 Pulse Rate [Apical] Respiratory Rate 14 13 16 Blood Pressure 121/57 120/57 125/58 Blood Pressure [Left Arm] O2 Sat by Pulse Oximetry 98 98 98 12/07/18 01:00 12/07/18 01:30 12/07/18 02:00 Temperature Pulse Rate 66 77 69 Pulse Rate [Apical] Respiratory Rate 13 16 13 Blood Pressure 120/56 134/62 132/58 Blood Pressure [Left Arm] O2 Sat by Pulse Oximetry 99 98 98 12/07/18 02:30 12/07/18 03:00 12/07/18 03:30 Temperature Pulse Rate 61 67 67 Pulse Rate [Apical] Respiratory Rate 14 13 15 Blood Pressure 141/63 152/65 143/65 Blood Pressure [Left Arm] O2 Sat by Pulse Oximetry 99 98 96 12/07/18 04:00 12/07/18 04:01 12/07/18 04:30 Temperature 97.9 F Pulse Rate 62 64 Pulse Rate [Apical] Respiratory Rate 16 13 Blood Pressure 142/62 131/57 Blood Pressure [Left Arm] O2 Sat by Pulse Oximetry 99 98 12/07/18 05:00 12/07/18 05:30 12/07/18 06:00 Temperature Pulse Rate 55 L 69 51 L Pulse Rate [Apical] Respiratory Rate 14 16 19 Blood Pressure 141/64 144/63 164/69 Blood Pressure [Left Arm] O2 Sat by Pulse Oximetry 99 99 99 12/07/18 06:30 12/07/18 06:31 12/07/18 07:00 Temperature Pulse Rate 65 64 63 Pulse Rate [Apical] Respiratory Rate 13 14 13 Blood Pressure 140/60 131/63 Blood Pressure [Left Arm] O2 Sat by Pulse Oximetry 99 99 98 12/07/18 07:30 12/07/18 08:00 12/07/18 08:30 Temperature 98.1 F Pulse Rate 84 85 Pulse Rate [Apical] Respiratory Rate 31 H 26 H Blood Pressure 125/59 148/64 154/67 Blood Pressure [Left Arm] O2 Sat by Pulse Oximetry 97 96 12/07/18 08:50 12/07/18 09:02 12/07/18 09:09 Temperature Pulse Rate 102 H 105 H 101 H Pulse Rate [Apical] Respiratory Rate 24 23 Blood Pressure Blood Pressure [Left Arm] O2 Sat by Pulse Oximetry 99 98 99 12/07/18 09:10 12/07/18 09:30 12/07/18 09:31 Temperature Pulse Rate 96 H 95 H 102 H Pulse Rate [Apical] Respiratory Rate 23 22 35 H Blood Pressure 180/74 152/67 Blood Pressure [Left Arm] O2 Sat by Pulse Oximetry 99 98 98 12/07/18 10:00 12/07/18 10:30 12/07/18 11:00 Temperature Pulse Rate 89 95 H Pulse Rate [Apical] Respiratory Rate 19 22 Blood Pressure 152/69 161/67 Blood Pressure [Left Arm] O2 Sat by Pulse Oximetry 99 97 12/07/18 11:01 12/07/18 11:30 12/07/18 11:31 Temperature Pulse Rate 93 H 91 H 90 Pulse Rate [Apical] Respiratory Rate 22 20 17 Blood Pressure 151/65 156/68 Blood Pressure [Left Arm] O2 Sat by Pulse Oximetry 98 98 99 12/07/18 12:00 12/07/18 12:30 12/07/18 12:47 Temperature 97.9 F Pulse Rate 89 111 H 97 H Pulse Rate [Apical] Respiratory Rate 16 36 H 30 H Blood Pressure 142/62 206/82 Blood Pressure [Left Arm] O2 Sat by Pulse Oximetry 97 96 97 12/07/18 12:49 12/07/18 13:00 12/07/18 13:30 Temperature Pulse Rate 101 H 98 H 95 H Pulse Rate [Apical] Respiratory Rate 27 H 25 H 19 Blood Pressure 166/70 Blood Pressure [Left Arm] O2 Sat by Pulse Oximetry 96 96 96 12/07/18 14:00 12/07/18 14:30 12/07/18 15:00 Temperature Pulse Rate 88 85 86 Pulse Rate [Apical] Respiratory Rate 24 18 25 H Blood Pressure 143/63 Blood Pressure [Left Arm] O2 Sat by Pulse Oximetry 96 97 96 12/07/18 15:28 12/07/18 15:30 12/07/18 16:00 Temperature 98.7 F Pulse Rate 82 83 89 Pulse Rate [Apical] Respiratory Rate 16 17 25 H Blood Pressure 149/65 149/65 Blood Pressure [Left Arm] O2 Sat by Pulse Oximetry 97 97 97 12/07/18 16:30 12/07/18 17:00 12/07/18 17:14 Temperature Pulse Rate 83 86 87 Pulse Rate [Apical] Respiratory Rate 18 17 20 Blood Pressure 154/67 Blood Pressure [Left Arm] O2 Sat by Pulse Oximetry 97 97 97 12/07/18 17:30 12/07/18 18:00 12/07/18 19:00 Temperature Pulse Rate 95 H 100 H 89 Pulse Rate [Apical] Respiratory Rate 20 28 H 28 H Blood Pressure 166/71 161/68 Blood Pressure [Left Arm] O2 Sat by Pulse Oximetry 97 96 97 12/07/18 20:00 12/07/18 21:00 12/07/18 21:20 Temperature 98.3 F Pulse Rate 87 98 H 93 H Pulse Rate [Apical] Respiratory Rate 19 25 H Blood Pressure 165/74 173/78 Blood Pressure [Left Arm] O2 Sat by Pulse Oximetry 97 91 L 97 12/07/18 21:55 12/07/18 22:00 12/07/18 23:00 Temperature Pulse Rate 84 87 95 H Pulse Rate [Apical] Respiratory Rate 18 19 Blood Pressure 179/80 179/75 Blood Pressure [Left Arm] O2 Sat by Pulse Oximetry 97 98 98 12/08/18 00:05 12/08/18 00:07 12/08/18 01:00 Temperature 98.3 F Pulse Rate 92 H 92 H 90 Pulse Rate [Apical] Respiratory Rate 23 19 18 Blood Pressure 172/75 180/72 Blood Pressure [Left Arm] O2 Sat by Pulse Oximetry 98 98 99 12/08/18 02:00 12/08/18 02:01 12/08/18 02:27 Temperature Pulse Rate 81 88 Pulse Rate [Apical] Respiratory Rate 16 18 19 Blood Pressure 147/64 Blood Pressure [Left Arm] O2 Sat by Pulse Oximetry 98 98 12/08/18 03:00 12/08/18 03:27 12/08/18 04:00 Temperature 98.2 F Pulse Rate 82 82 Pulse Rate [Apical] Respiratory Rate 17 18 17 Blood Pressure 167/72 171/72 Blood Pressure [Left Arm] O2 Sat by Pulse Oximetry 99 99 12/08/18 05:00 12/08/18 05:01 12/08/18 06:00 Temperature Pulse Rate 80 81 88 Pulse Rate [Apical] Respiratory Rate 17 18 32 H Blood Pressure 157/66 175/74 Blood Pressure [Left Arm] O2 Sat by Pulse Oximetry 98 98 98 12/08/18 07:00 12/08/18 08:00 12/08/18 09:00 Temperature 98.1 F Pulse Rate 75 85 83 Pulse Rate [Apical] Respiratory Rate 23 21 20 Blood Pressure 169/71 171/74 179/77 Blood Pressure [Left Arm] O2 Sat by Pulse Oximetry 100 97 99 12/08/18 10:00 12/08/18 11:00 12/08/18 11:01 Temperature Pulse Rate 81 63 63 Pulse Rate [Apical] Respiratory Rate 25 H 20 21 Blood Pressure 174/77 169/74 Blood Pressure [Left Arm] O2 Sat by Pulse Oximetry 95 98 98 12/08/18 12:00 12/08/18 12:10 12/08/18 12:12 Temperature Pulse Rate 83 80 Pulse Rate [Apical] Respiratory Rate 33 H Blood Pressure 173/94 159/69 Blood Pressure [Left Arm] O2 Sat by Pulse Oximetry 96 98 Labs: Laboratory Last Values WBC 7.9 X10^3/uL (3.6-10.0) 12/08/18 05:20 RBC 4.41 X10^6/uL (4.7-6.0) L 12/08/18 05:20 Hgb 13.1 g/dL (13.5-18.0) L 12/08/18 05:20 Hct 39.4 % (42.0-54.0) L 12/08/18 05:20 MCV 89.4 fL (80.0-100.0) 12/08/18 05:20 MCH 29.6 pg (27.0-34.0) 12/08/18 05:20 MCHC 33.2 g/dL (33.0-35.0) 12/08/18 05:20 RDW 13.8 % (11.6-16.5) 12/08/18 05:20 Plt Count 123 X10^3/uL (150.0-450.0) L 12/08/18 05:20 MPV 8.8 fL (7.4-11.0) 12/08/18 05:20 Neut % (Auto) 85.3 % (42.0-75.0) H 12/08/18 05:20 Lymph % (Auto) 7.5 % (21.0-51.0) L 12/08/18 05:20 [place] % (Auto) 7.0 % (0.0-13.0) 12/08/18 05:20 Eos % (Auto) 0.1 % (0.9-2.9) L 12/08/18 05:20 Baso % (Auto) 0.1 % (0.2-1.0) L 12/08/18 05:20 Neut # (Auto) 6.7 x10^3/uL (2.2-4.8) H 12/08/18 05:20 Lymph # (Auto) 0.6 X10^3/uL (1.3-2.9) L 12/08/18 05:20 [place] # (Auto) 0.6 x10^3/uL (0.3-0.8) 12/08/18 05:20 Eos # (Auto) 0.0 x10^3/uL (0.0-0.2) 12/08/18 05:20 Baso # (Auto) 0.0 X10^3/uL (0.0-0.1) 12/08/18 05:20 Absolute Nucleated RBC 0.0 /100WBC 12/08/18 05:20 PT 13.1 SECONDS (11.8-14.3) 12/06/18 16:22 INR Target Range - 12/06/18 16:22 INR 1.03 (0.8-1.3) 12/06/18 16:22 APTT 55.7 SECONDS (22.9-36.5) H 12/07/18 08:45 PTT Comment - 12/07/18 08:45 Sample Site Rb 12/06/18 17:04 ABG pH 7.300 (7.35-7.45) L 12/06/18 17:04 ABG pCO2 50.0 mmHg (35.0-45.0) H 12/06/18 17:04 ABG pO2 81.0 mmHg (80.0-100.0) 12/06/18 17:04 ABG HCO3 24.6 mmol/L (22-26) 12/06/18 17:04 ABG O2 Saturation 95.0 % (90-100) 12/06/18 17:04 ABG Base Excess -2.3 mmol/L (-2.0-2.0) L 12/06/18 17:04 [place] Test Pos 12/06/18 17:04 A-a Gradient 56.0 mmHg 12/06/18 17:04 FiO2 28.0 12/06/18 17:04 Blood Gas Comments Kacie well cb 12/06/18 17:04 Sodium 141 mmol/L (136-145) 12/08/18 05:20 Corrected Sodium 142 mmol/L (136-145) 12/08/18 05:20 Potassium 4.4 mmol/L (3.5-5.1) 12/08/18 05:20 Chloride 107 mmol/L (98-107) 12/08/18 05:20 Carbon Dioxide 24.8 mmol/L (21-32) 12/08/18 05:20 BUN 21 mg/dL (7-18) H 12/08/18 05:20 Creatinine 1.01 mg/dL (0.70-1.30) 12/08/18 05:20 Est GFR (MDRD) Af Amer > 60 (>60) 12/08/18 05:20 Est GFR (MDRD) Non-Af > 60 (>60) 12/08/18 05:20 Glucose 161 mg/dL (65-99) H 12/08/18 05:20 Lactic Acid 0.9 mmol/L (0.4-2.0) 12/06/18 22:09 Calcium 8.7 mg/dL (8.5-10.1) 12/08/18 05:20 Corrected Calcium 9.4 mg/dL (8.5-10.1) 12/07/18 04:52 Total Bilirubin 0.30 mg/dL (0.2-1.0) 12/07/18 04:52 AST 13 Units/L (15-37) L 12/07/18 04:52 ALT 12 Units/L (12-78) 12/07/18 04:52 Alkaline Phosphatase 58 Units/L (46-116) 12/07/18 04:52 Creatine Kinase 133 Units/L (39-308) 12/06/18 22:09 CK-MB (CK-2) 2.1 ng/mL (0-4.0) 12/06/18 22:09 CK/CKMB % Calc 1.6 % (<4) 12/06/18 22:09 Troponin I < 0.02 ng/mL (0-1.5) 12/06/18 22:09 B-Natriuretic Peptide 102 pg/mL (0-79) H 12/06/18 16:22 Total Protein 6.4 g/dL (6.4-8.2) 12/07/18 04:52 Albumin 3.0 g/dL (3.4-5.0) L 12/07/18 04:52 Globulin 3.4 g/dL (2.5-4.5) 12/07/18 04:52 Albumin/Globulin Ratio 0.9 Ratio (1.1-2.1) L 12/07/18 04:52 Influenza Type A (PCR) Negative (NEGATIVE) 12/07/18 02:00 Influenza Type B (PCR) Negative (NEGATIVE) 12/07/18 02:00 Reason For Visit: HYPOTENSION,PULMONARY FIBROSIS,LUNG NODULES Discharge Date Discharge Date: 12/08/18 Discharge Diagnosis All Active Problems (Updated 12/06/18 @ 19:59 by Corie Gentile) Acute respiratory acidosis (Acute) Acute renal failure (ARF) (Acute) Hypoxia (Acute) Acute chronic obstructive pulmonary disease with respiratory distress (Acute) Hypercapnia (Acute) Acute hypotension (Acute) Acute hyperkalemia (Acute) Dyspnea (Acute) Lung nodule, multiple (Acute) Pulmonary fibrosis (Acute) Plan of Treatment: Continue with present treatment and follow up plan. Pt is to keep follow up appointment as instructed and take medications as ordered. Discharge Medications Discharge Medications: Penicillins Allergy (Verified 07/29/18 21:40) CONTINUE taking the following medications Trelegy Ellipta 1 inh INHALATION DAILY 12/06/18 [History] albuterol sulfate [ProAir HFA] 1 inh INHALATION PRN PRN 12/06/18 [History] carisoprodol [Soma] 350 mg PO HS 12/06/18 [History] cholecalciferol (vitamin D3) [Vitamin D3] 1,000 unit PO DAILY 12/06/18 [History] clopidogrel [Plavix] 75 mg PO DAILY 12/06/18 [History] cyanocobalamin (vitamin B-12) [Vitamin B-12] 1,000 mcg PO DAILY 12/06/18 [History] gabapentin 100 mg PO BID 12/06/18 [History] ipratropium-albuterol 3 ml INHALATION QID PRN 12/06/18 [History] iron 27 mg PO DAILY 12/06/18 [History] levothyroxine [Synthroid] 25 mcg PO DAILY 12/06/18 [History] New Prescriptions cefdinir 300 mg PO BID 5 Days #10 cap 12/08/18 [Rx] prednisone 40 mg PO DAILY 5 Days #5 tab 12/08/18 [Rx] Discharge Disposition Discharge Disposition: stable
[2018-12-08] MEDS ORDERED: COLACE CAP 100 MG PO SCH (21:00)
[2018-12-09] MEDS ORDERED: PHARMACY COMMENT IV NR (19:30)
== END 2018-12-08 13:20 | disposition home or self-care (01) | DRG 315 ==
LOC: ER 16:12 → ICU 18:12
PROVIDERS: ADMIT Internal Medicine; ATTEND Internal Medicine
DX: E87.5 Hyperkalemia; J44.1 Chronic obstructive pulmonary disease with (acute) exacerbation; B96.5 Pseudomonas (aeruginosa) (mallei) (pseudomallei) as the cause of diseases classified elsewhere; Z89.612 Acquired absence of left leg above knee; R94.31 Abnormal electrocardiogram [ECG] [EKG]; I95.89 Other hypotension; N17.8 Other acute kidney failure; J84.10 Pulmonary fibrosis, unspecified; I25.10 Atherosclerotic heart disease of native coronary artery without angina pectoris; E87.2 Acidosis; B95.62 Methicillin resistant Staphylococcus aureus infection as the cause of diseases classified elsewhere; R06.02 Shortness of breath; J44.0 Chronic obstructive pulmonary disease with (acute) lower respiratory infection; R91.8 Other nonspecific abnormal finding of lung field; R79.1 Abnormal coagulation profile
CPT/HCPCS: 36415; 36600; 71010; 71045; 71275; 80048; 80053; 82550; 82553; 82803; 83605; 83880; 84132; 84484; 85025; 85610; 85730; 87040; 87502; 93005; 93971; 94640; 96365; 96374; 99285; A4216; A4222; J0713; J1265; J1644; J2930; J3370; J3490; J7030; J7050; J7060; J7620